=== PATIENT | female | born 1955 | race Caucasian/White ===

== ENCOUNTER 2020-03-10 16:32 | Emergency (ER) | payer MEDICARE ==
[~2020-03-10] VITALS: Ht 165.1 cm; Wt 55.1 kg
[2020-03-10 16:36] VITALS: BP 125/75
--- NOTE | 2020-03-10 17:37 | NUR ---
left facial droop and unable to close left eye. after md eval d/c given and ambulated to discharge window, steady gait
== END 2020-03-10 17:40 | disposition home or self-care (01) ==
LOC: ED 17:00
DX: G51.0 Bell's palsy (principal); R94.31 Abnormal electrocardiogram [ECG] [EKG]
CPT/HCPCS: 93005; 99283

== ENCOUNTER 2020-03-15 11:06 | Emergency (ER) | payer MEDICARE ==
[~2020-03-15] VITALS: Ht 165.1 cm; Wt 56.1 kg
--- NOTE | 2020-03-15 11:48 | NUR ---
Seen here 03/10 for workup of left facial droop, dx with bells palsy and ear infection per significant other, pt has been demonstrating "poor cognition, not acting normally" for the last 3-4 days no focal deficits cognition assessment without deficits per writers exam
[2020-03-15] MEDS ORDERED: ARTIFICIAL TEARS OINT 3.5 GM LEFTEYE PRN (12:00)
--- NOTE | 2020-03-15 12:00 | NUR ---
cc ua sent lab at bedside for draw med request sent to pharmacy for lacrilube
[2020-03-15 12:10] LABS: BASOPHILS # (AUTO) 0.01 x10^3/uL (0-0.1); BASOPHILS % (AUTO) 0 % (0-1); EOSINOPHILS % (AUTO) 0 % (1-7); LYMPHOCYTES # (AUTO) 1.14 x10^3/uL (1-3.4); LYMPHOCYTES % (AUTO) 9 % (22-44); MD NO; MEAN CORPUSCULAR HEMOGLOBIN 30.7 pg (27.0-34.8); MEAN CORPUSCULAR HGB CONC 31.9 g/dL (32.4-35.8); MEAN CORPUSCULAR VOLUME 96.2 fL (80-100); MEAN PLATELET VOLUME 6.9 fL (7.4-10.4); MONOCYTES % (AUTO) 2 % (2-9); NEUTROPHILS # (AUTO) 11.69 x10^3/uL (1.8-6.8); NEUTROPHILS % (AUTO) 90 % (42-75); PLATELET COUNT 318 x10^3/uL (130-400); RED BLOOD COUNT 4.48 x10^6/uL (3.82-5.3); RED CELL DISTRIBUTION WIDTH 14.5 % (9.6-15.2)
--- NOTE | 2020-03-15 12:17 | NUR ---
lacrilube administered to left eye per emar Provided with new eye patch
[2020-03-15 12:23] LABS: CALCIUM 9.6 mg/dL (8.5-10.1); CHLORIDE 108 mmol/L (98-107)
[2020-03-15 12:37] LABS: ALBUMIN 3.7 g/dL (3.4-5.0); ANION GAP 13 mmol/L (5-15)
[2020-03-15 12:45] LABS: AMPHETAMINE SCREEN, URINE Negative (Negative); BARBITURATE SCREEN, URINE Negative (Negative); BENZODIAZEPINE SCREEN, URINE Negative (Negative); CANNABINOID SCREEN, URINE Positive (Negative); MICROSCOPIC NOT IND; OPIATE SCREEN, URINE Negative (Negative)
[2020-03-15 12:52] LABS: COCAINE SCREEN, URINE Negative (Negative); METHADONE SCREEN, URINE Negative (Negative)
--- NOTE | 2020-03-15 13:05 | NUR ---
Ct called to expedite exam (slight delay from earlier code neuro)
--- NOTE | 2020-03-15 13:40 | NUR ---
to ct scan no change in neuro exam vss
[2020-03-15 13:51] VITALS: BP 123/77
== END 2020-03-15 14:29 | disposition home or self-care (01) ==
LOC: ED 13:28
DX: G51.0 Bell's palsy (principal); R73.9 Hyperglycemia, unspecified; F17.200 Nicotine dependence, unspecified, uncomplicated; R94.31 Abnormal electrocardiogram [ECG] [EKG]
CPT/HCPCS: 36415; 70450; 80048; 80307; 81003; 82040; 85025; 93005; 99285